=== PATIENT | male | born 2000 | race Caucasian/White ===

== ENCOUNTER 2019-10-26 10:01 | Emergency (ER) | payer SELFPAY ==
[2019-10-26 10:05] VITALS: BP 140/92; PULSE 82; RESP 18; TEMP 36.3; O2SAT 100
[2019-10-26 10:17] LABS: Basophils Absolute Auto 0.1 K/mm3 (0.0-0.1); Basophils Percent Auto 1.5 % (0.2-1.2); Eosinophils Absolute Auto 0.1 K/mm3 (0-0.3); Eosinophils Percent Auto 1.8 % (0-4.4); Hemoglobin 14.2 g/dL (14.0-18.0); Immature Granulocyte Absolute 0.04 K/mm3 (0.00-0.031); Immature Granulocyte Percent A 0.6 % (0-0.5); Lymphocytes Absolute Auto 1.62 K/mm3 (0.9-3.2); Lymphocytes Percent Auto 22.7 % (18.3-44.2); Mean Corpuscular HGB Conc 31.6 g/dl (32-36); Mean Corpuscular Hemoglobin 27.1 pg (26-34); Mean Corpuscular Volume 85.9 fl (80-100); Mean Platelet Volume 10.2 fl (7.4-10.4); Monocytes Absolute Auto 0.7 K/mm3 (0.1-0.6); Monocytes Percent Auto 9.4 % (2.6-8.5); Neutrophils Absolute Auto 4.6 K/mm3 (1.3-6.7); Platelet Count Result 307 k/mm3 (150-375); Red Blood Count 5.24 M/mm3 (4.6-6.20); Red Cell Distribution Width 12.7 % (11.5-14.5); White Blood Count 7.2 K/mm3 (4.5-10.0)
[2019-10-26 12:01] LABS: Alanine Aminotransferase 21 U/L (4-50); Albumin Level 4.3 g/dL (3.5-5.1); Alkaline Phosphatase 63 U/L (38-126); Aspartate Amino Transferase 25 U/L (17-59); Bilirubin,Total 0.3 mg/dL (0.2-1.3); Blood Urea Nitrogen 9 mg/dL (9-20); Calcium 9.2 mg/dL (8.4-10.2); Carbon Dioxide 23 mmol/L (22-30); Chloride 108 mmol/L (98-107); Estimated CRCL calculation 135 ml/min; Estimated Glomerular Filt Rate > 60; Glucose 101 mg/dL (75-110); Lipase 61 U/L (23-300); Potassium 4.2 mmol/L (3.4-5.0); Sodium 139 mmol/L (137-145)
[2019-10-26] MEDS: SODIUM CHLORIDE 0.9% IV 1,000 ML 999 ML IV CONT (12:06)
[2019-10-26] MEDS: PANTOPRAZOLE SODIUM IV 40 MG VIAL IV PUSH (12:06)
[2019-10-26 12:07] VITALS: BP 126/83; PULSE 71; RESP 14; O2SAT 97
--- NOTE | 2019-10-26 12:33 | ED.ABDPAIN ---
HPI - Abdominal Pain General Chief Complaint: Abdominal Pain <Myron Lim PA-C - Last Filed: 10/26/19 12:37> Stated Complaint: vomiting blood <Myron Lim PA-C - Last Filed: 10/26/19 12:37> Time Seen by Provider: 10/26/19 11:20 <Myron Lim PA-C - Last Filed: 10/26/19 12:37> Source: patient <Myron Lim PA-C - Last Filed: 10/26/19 12:37> Mode of arrival: ambulatory <SOMMER Camacho Last Filed: 10/26/19 12:37> Limitations: no limitations <Myron Lim PA-C - Last Filed: 10/26/19 12:37> History of Present Illness HPI narrative: Patient is a 19-year-old male who presents to emergency department for evaluation of nausea and vomiting x1 that occurred today patient patient noted some dark emesis concerning for blood has had a similar occurrence in the past unsure as to the etiology noting that it just got better patient on arrival to emergency department is resting comfortably in the room noting that his symptoms have improved <Myron Lim PA-C - Last Filed: 10/26/19 12:37> Related Data Allergies/Adverse Reactions: Allergies Allergy/AdvReac Type Severity Reaction Status Date / Time No Known Allergies Allergy Verified 10/26/19 11:30 <Myron Lim PA-C - Last Filed: 10/26/19 12:37> Review of Systems Review of Systems: All systems reviewed & are unremarkable except as noted in HPI and below <Myron Lim PA-C - Last Filed: 10/26/19 12:37> PMFSH Social History Social History: Social History Gender identity (if verbalized by the patient): Male <SOMMER Camacho Last Filed: 10/26/19 12:37> Exam Narrative: Exam Narrative: GENERAL: Well-appearing, well-nourished, and in no acute distress. HEAD: Normocephalic, atraumatic. EYES: PERRLA and EOMI. ENT: Nares clear, no rhinorrhea or epistaxis. Mucous membranes moist. CHEST: Clear to auscultation. No respiratory distress. No wheezes rales or rhonchi HEART: Regular rate and rhythm. No murmur heard. Normal peripheral pulses. ABDOMEN: Soft, nontender, nondistended EXTREMITIES: Normal range of motion. No edema. SKIN: Warm, dry, no rash. NEURO: No focal deficits. Alert and oriented x3. Cranial nerves II through XII grossly intact PSYCH: Normal mood and affect. <SOMMER Camacho Last Filed: 10/26/19 12:37> Course Course Emergency Course: Patient in the room in no distress aware of case findings treatment plan and diagnosis agreeing to follow-up as directed or to return if symptoms worsen or concerns <Myron Lim PA-C - Last Filed: 10/26/19 12:37> Vital Signs Vital signs: Vital Signs Temperature 36.3 C L 10/26/19 10:05 Pulse Rate 82 10/26/19 10:05 Respiratory Rate 18 10/26/19 10:05 Blood Pressure 140/92 H 10/26/19 10:05 Pulse Oximetry 100 10/26/19 10:05 Temperature 36.3 C L 10/26/19 10:05 Pulse Rate 78 10/26/19 13:03 Respiratory Rate 16 10/26/19 13:03 Blood Pressure 129/79 10/26/19 13:03 Pulse Oximetry 100 10/26/19 13:03 <Myron Lim PA-C - Last Filed: 10/26/19 12:37> Vital Signs Temperature 36.3 C L 10/26/19 10:05 Pulse Rate 82 10/26/19 10:05 Respiratory Rate 18 10/26/19 10:05 Blood Pressure 140/92 H 10/26/19 10:05 Pulse Oximetry 100 10/26/19 10:05 Temperature 36.3 C L 10/26/19 10:05 Pulse Rate 78 10/26/19 13:03 Respiratory Rate 16 10/26/19 13:03 Blood Pressure 129/79 10/26/19 13:03 Pulse Oximetry 100 10/26/19 13:03 <Shereen Desir MD - Last Filed: 10/26/19 17:44> MDM - Abdominal Pain MDM Narrative Medical decision making narrative: Patient in the room in no distress no high risk changes in the blood work hemodynamically stable felt appropriate for outpatient reevaluation provided with reasons to return also given GI consult for further evaluation <Myron Lim PA-C - Last Raoul
[2019-10-26 13:03] VITALS: BP 129/79; PULSE 78; RESP 16; O2SAT 100
== END 2019-10-26 13:04 | disposition home or self-care (01) ==
PROVIDERS: Emergency Provider Emergency Medicine
DX: R10.9 Unspecified abdominal pain (principal)
CPT/HCPCS: 36415; 80053; 83690; 85025; 96361; 96374; 99284; C9113; J7030